=== PATIENT | female | born 1965 | race Two or more races ===

== ENCOUNTER 2019-02-20 01:55 | Inpatient (IN) | payer OTHER ==
[2019-02-20] VITALS (9 sets, daily range): BP systolic 107–132; BP diastolic 55–75
[~2019-02-20] VITALS: Ht 157.5 cm; Wt 53.1 kg
--- NOTE | 2019-02-20 00:10 | NUR ---
REPORT RECEIVED FROM BRIAN CASTILLO AT [facility]
--- NOTE | 2019-02-20 02:05 | NUR ---
RECEIVED PATIENT FROM [facility] VIA GURNEY IN STABLE CONDITION. PATIENT AWAKE, A/OX4 AND ABLE TO VERBALIZE NEEDS AND PROVIDE HISTORY. PATIENT LIVES HOME WITH WHO BROUGHT HER TO [facility] FOR SOB, GENERALIZED WEAKNESS, AND NON PRODUCTIVE COUGH X1 WEEK. PATIENT WITH HX OF COPD, ASTHMA, PNA, TUBAL LIGATION, SMOKER WHO QUIT X5 YRS AGO. PATIENT STATED SHE WENT TO [facility] X1 YR AGO FOR THE SAME SYMPTOMS AND WAS DIAGNOSED WITH COPD EXACERBATION. SHE ALSO STATES SHE HAS BREATHING TREATMENTS AT HOME VIA NEBULIZER BUT STATES "THEY DON'T SEEM TO BE EFFECTIVE ANYMORE." PATIENT BREATHING EASILY AT 2LPM VIA NC. NO DISTRESS NOTED. PERIPHERAL LINE IN LAC #20 GAUGE INTACT AND PATENT. NO C/O PAIN OR DISCOMFORT. VITALS WNL. DR. KRAMER MADE AWARE AND AWAITING ADMISSION ORDERS. ENCOURAGED USE OF CALL LIGHT FOR ASSISTANCE AND VERBALIZED GOOD UNDERSTANDING. BED IN LOW LOCK SETTING. ROOM FREE OF CLUTTER AND BELONGINGS KEPT NEAR BEDSIDE. WILL CONTINUE TO MONITOR.
[2019-02-20] MEDS ORDERED: ALBU1.257 NEB (03:23)
[2019-02-20] MEDS ORDERED: Z GUARD REMEDY 2 OZ OINT TP PRN (03:30)
[2019-02-20] MEDS: ALBUTEROL FS 2.5 MG/0.5 ML VIAL.NEB NEB SCH ×8 (03:30→22:57)
[2019-02-20] MEDS: IPRATROPIUM NEB FS 0.5 MG/2.5 ML AMPUL.NEB NEB SCH ×8 (03:30→22:57)
[2019-02-20] MEDS ORDERED: ACETAMINOPHEN 325 MG TABLET PO PRN (03:30)
[2019-02-20] MEDS ORDERED: MAG HYDROX/AL HYDROX/SIMETH 30 ML UDC PO PRN (03:30)
[2019-02-20] MEDS ORDERED: ONDANSETRON HCL/PF 4 MG/2 ML VIAL IVP PRN (03:30)
[2019-02-20] MEDS ORDERED: ZOLPIDEM TARTRATE 5 MG TABLET PO PRN (03:30)
[2019-02-20] MEDS ORDERED: MAGNESIUM HYDROXIDE 30 ML UDC PO PRN (03:30)
[2019-02-20] MEDS ORDERED: CEFTRIAXONE 1 G VIAL ONE (04:13)
[2019-02-20] MEDS: CEFTRIAXONE 1 G in IV D5W 50 ML IV SCH (04:16)
[2019-02-20] MEDS: HYDROCODONE/APAP 5/325MG 1 EACH TABLET PO PRN ×3 (04:31→20:20)
[2019-02-20] MEDS ORDERED: AZITHROMYCIN 500 MG VIAL ONE (05:19)
[2019-02-20] MEDS: AZITHROMYCIN 500 MG in IV D5W 250 ML IV SCH (05:45)
--- NOTE | 2019-02-20 06:19 | NUR ---
LAW OFFICE RECEPTIONIST NOTES PATIENT AWAKE IN BED WITH NO DISTRESS NOTED. CALL LIGHT WITHIN REACH. PERIPHERAL LINE INTACT AND PATENT. ALL DUE MEDS GIVEN ORDERED WITH NO ASE NOTED. NO FURTHER C/O PAIN OR DISCOMFORT. BED IN LOW LOCK SETTING. ALL BELONGINGS KEPT NEAR BEDSIDE. WILL ENDORSE TO ONCOMING SHIFT.
[2019-02-20 06:41] LABS: BASOPHILS % (AUTO) 0.1 % (0.0-2.0); HEMATOCRIT 41 % (33-45); HEMOGLOBIN 13.6 g/dL (11.5-14.8); LYMPHOCYTES # (AUTO) 0.8 /CMM (0.8-4.8); LYMPHOCYTES % (AUTO) 12.2 % (20.0-44.0); MEAN CORPUSCULAR HGB CONC 33 g/dl (31.0-36.0); MEAN CORPUSCULAR VOLUME 92 fL (82-100); MONOCYTES # (AUTO) 0.2 /CMM (0.1-1.30); MONOCYTES % (AUTO) 2.7 % (2.0-12.0); NEUTROPHILS # (AUTO) 5.9 /CMM (1.8-8.9); PLATELET COUNT (AUTO) 279 /CMM (150-450); RED BLOOD CELL COUNT(AUTO) 4.42 MIL/uL (4.0-5.2); WHITE BLOOD COUNT (AUTO) 6.9 K/uL (4.3-11.0)
--- NOTE | 2019-02-20 07:00 | NUR ---
RN AM SHIFT NOTE PATIENT ALERT AND ORIENTED X4. ABLE TO MAKE NEEDS KNOWN. IV PATENT AND INTACT LAC 20. ABLE TO AMBULATE TO THE BATHROOM W ASSIST, SHOP HAND AWARE. OXYGEN IN PLACE NASAL CANNULA. VITALS STABLE WNL. SKIN INTACT, HEADACHE PAIN MANAGED WITH CURRENT ANALGESICS. CONTINUE TO MONITOR.
[2019-02-20 07:07] LABS: ALBUMIN 3.3 g/dL (3.4-5.0); BILIRUBIN,TOTAL 0.3 mg/dL (0.2-1.0); CALCIUM, SERUM 9.1 mg/dL (8.5-10.1); CREATININE 0.8 mg/dL (0.6-1.3); POTASSIUM 4.5 mmol/L (3.5-5.1); TOTAL PROTEIN, SERUM 7.7 g/dL (6.4-8.2)
[2019-02-20] MEDS: PANTOPRAZOLE 40 MG TABLET.DR PO SCH (07:49)
[2019-02-20] MEDS: methylPREDNISolone SOD SUCC 125 MG/2ML VIAL IV SCH ×3 (08:09→18:18)
[2019-02-20] MEDS ORDERED: ALBU8.5H8 IH (09:05)
[2019-02-20] MEDS ORDERED: PRED5TAB48 PO (09:05)
[2019-02-20] MEDS ORDERED: ALBU6.7H IH (09:05)
[2019-02-20] MEDS ORDERED: FLUT1DIS3 IH (09:05)
[2019-02-20] MEDS ORDERED: MONT10TA22 PO (09:05)
--- NOTE | 2019-02-20 16:48 | NUR ---
RN NOTE PATIENT ASLEEP ALL DAY. ALERT AND ORITNED X4. AMBULATORY, IV PATENT INTACT, FAMILY CALLED SPOKE WITH FIDEL AND RN. MD OLEA TO SEE FIDEL NEW ORDERS CARRIED OUT PER . NO DISTRESS NOTED AT THIS TIME. PENDING TESTS CONTINUE HOSPITALIZATION PER MD.
--- NOTE | 2019-02-20 20:00 | NUR ---
RN AM SHIFT NOTE RECEIVED PATIENT BEDSIDE REPORT FROM AM SHIFT.PATIENT ALERT AND ORIENTED X4. ABLE TO MAKE NEEDS KNOWN. IV PATENT AND INTACT LAC 20. ABLE TO AMBULATE TO THE BATHROOM W ASSIST, BUSINESS LINE MANAGER AWARE. 2L OXYGEN IN PLACE VIA NASAL CANNULA. SKIN INTACT, PTY COMPLAINT OF HEADACHE PAIN 8/ AND HAS BEEN MANAGED WITH CURRENT ANALGESICS. PT IS REFUSING TO BE CLEANED AND SAID SHE WILL DO IT IN THE MORNING. WILL CONTINUE TO MONITOR PT CLOSELY.
--- NOTE | 2019-02-20 22:21 | NUR ---
MS/RN OPENING NOTES PT RECEIVED FROM RNZELALEM. PT ASLEEP, RESPONSIVE TO NAME. ON 2L O2 VIA NC, BREATHING EVEN AND UNLABORED. DENIES SOB AND PAIN AT THIS TIME. IV TO LAC PATENT AND INTACT. NO NEEDS EXPRESSED AT THIS TIME. BED IN LOW/LOCKED POSITION WITH CALL LIGHT IN REACH. BILAT. UPPER SIDE RAILS IN PLACE. HOB ELEVATED. WILL CONTINUE TO MONITOR
[2019-02-20 23:36] LABS: APPEARANCE,URINE SL CLOUDY (CLEAR); BILIRUBIN,URINE NEGATIVE (NEGATIVE); BLOOD, URINE NEGATIVE Ery/uL (NEGATIVE); COLOR,URINE YELLOW (YELLOW); KETONES,URINE NEGATIVE (NEGATIVE); LEUKOCYTE ESTERASE ,URINE TRACE (NEGATIVE); NITRITE, URINE NEGATIVE (NEGATIVE); PH,URINE 6.5 (5.0-8.0); PROTEIN,URINE NEGATIVE (NEGATIVE); UGLUCOSE TRACE mg/dL (NEGATIVE); UROBILINOGEN,URINE 0.2 EU/dL (0.2)
[2019-02-21 00:02] LABS: BACTERIA,URINE Few /HPF (None Seen); RBC,URINE 0-2 /HPF (0-2); SQUAMOUS EPITHELIAL CELL,UR Few /HPF (None Seen)
[2019-02-21] MEDS: IPRATROPIUM NEB FS 0.5 MG/2.5 ML AMPUL.NEB NEB SCH ×6 (02:35→22:32)
[2019-02-21] MEDS: ALBUTEROL FS 2.5 MG/0.5 ML VIAL.NEB NEB SCH ×6 (02:35→22:32)
[2019-02-21] MEDS: CEFTRIAXONE 1 G in IV D5W 50 ML IV SCH (03:09)
[2019-02-21] MEDS: AZITHROMYCIN 500 MG in IV D5W 250 ML IV SCH (03:50)
[2019-02-21 04:00] VITALS: BP 121/67
--- NOTE | 2019-02-21 05:21 | NUR ---
RN NOTES PT C/O PAIN TO LAC IV SITE. REMOVED PER PT REQUEST. NEW IV INSERTED TO RIGHT HAND #24. FLUSHES WELL.
--- NOTE | 2019-02-21 06:31 | NUR ---
MS/RN CLOSING NOTES PT ASLEEP, RESPONSIVE TO NAME. REMAINS ON 2L O2 VIA NC, BREATHING EVEN AND UNLABORED. DENIES SOB AND PAIN AT THIS TIME. EDUCATION ON INCENTIVE SPIROMETER USE GIVEN, PT REFUSED TO DEMONSTRATE HOW IT SHOULD BE USED. WANTS TO "DO IT LATER". IV TO RIGHT HAND PATENT AND INTACT. NO CHANGES OVERNIGHT. ALL NEEDS MET. BED IN LOW/LOCKED POSITION WITH CALL LIGHT IN REACH, BILAT. UPPER SIDE RAILS IN PLACE. HOB ELEVATED. WILL ENDORSE TO ONCOMING SHIFT KAVIN.
[2019-02-21 06:56] LABS: BASOPHILS % (AUTO) 0.1 % (0.0-2.0); HEMATOCRIT 40 % (33-45); HEMOGLOBIN 13.1 g/dL (11.5-14.8); LYMPHOCYTES % (AUTO) 4.2 % (20.0-44.0); MEAN CORPUSCULAR HGB CONC 33 g/dl (31.0-36.0); MEAN CORPUSCULAR VOLUME 93 fL (82-100); MONOCYTES # (AUTO) 0.8 /CMM (0.1-1.30); MONOCYTES % (AUTO) 3.7 % (2.0-12.0); NEUTROPHILS # (AUTO) 21.2 /CMM (1.8-8.9); PLATELET COUNT (AUTO) 324 /CMM (150-450)
[2019-02-21 07:07] LABS: THYROID STIMULATING HORMONE 0.39 uIU/mL (0.358-3.74)
[2019-02-21 07:16] LABS: CALCIUM, SERUM 8.7 mg/dL (8.5-10.1); CREATININE 0.8 mg/dL (0.6-1.3); MAGNESIUM 2.1 mg/dL (1.8-2.4); POTASSIUM 4.5 mmol/L (3.5-5.1)
[2019-02-21 08:00] VITALS: BP 124/78
[2019-02-21] MEDS: PANTOPRAZOLE 40 MG TABLET.DR PO SCH (10:01)
[2019-02-21] MEDS: methylPREDNISolone SOD SUCC 125 MG/2ML VIAL IV SCH ×3 (10:04→17:58)
[2019-02-21 16:00] VITALS: BP 126/68
[2019-02-21] MEDS ORDERED: LACTOBACILLUS RHAMNOSUS GG 1 EACH CAP.SPRINK PO SCH (17:00)
--- NOTE | 2019-02-21 19:20 | NUR ---
RN OPEN NOTES RECEIVED PATIENT AWAKE IN BED. A/OX4. NO SIGNS OF DISTRESS OR DISCOMFORT. BREATHING EVEN AND UNLABORED. ON 2LPM 02 VIA NC. IV ACCESS IN R HAND, PATENT AND INTACT, NO SIGNS OF REDNESS OR INFILTRATION. BED IN LOW LOCKED POSITION WITH SIDE RAILS X2. CALL LIGHT WITHIN REACH. WILL CONTINUE TO MONITOR.
[2019-02-21 20:00] VITALS: BP 111/72
--- NOTE | 2019-02-21 23:43 | NUR ---
RN CLOSING NOTES PATIENT IN STABLE CONDITION. NO SIGNS OF DISTRESS OR DISCOMFORT. BREATHING EVEN AND UNLABORED. DENIES ANY SOB. PATIENT 02 SATURATION IS 92% ON RA. DISCHARGED TO HOME WITH . PATIENT ASSISTED TO LOBBY BY LUBRICATING SPECIALIST. ADVISED PATIENT TO FOLLOW UP WITH PRIMARY CARE PHYSICIAN. PATIENT VERBALIZED UNDERSTANDING OF DISCHARGE INSTRUCTIONS AND EDUCATION. NO SKIN ISSUES NOTED.
== END 2019-02-21 23:39 | disposition home or self-care (01) | DRG 140 ==
LOC: TELE1 01:55 → MEDSG1 16:13
PROVIDERS: ADMIT Hospitalist; ATTEND Hospitalist
DX: J44.1 Chronic obstructive pulmonary disease with (acute) exacerbation (principal); J15.9 Unspecified bacterial pneumonia; E44.1 Mild protein-calorie malnutrition; E88.09 Other disorders of plasma-protein metabolism, not elsewhere classified; J44.0 Chronic obstructive pulmonary disease with (acute) lower respiratory infection; Z87.891 Personal history of nicotine dependence; Z68.21 Body mass index [BMI] 21.0-21.9, adult; N39.0 Urinary tract infection, site not specified; R82.998 Other abnormal findings in urine
CPT/HCPCS: 36415; 71045-TC; 80048-TC; 80053-TC; 80061-TC; 80305; 81000-TC; 83735-TC; 84100-TC; 84443-TC; 85025-TC; 87081-TC; 87086-TC; 87400; 94799-TC; G0378; J0456; J0696; J2930; J7060